=== PATIENT | female | born 1940 | race Caucasian/White ===

== ENCOUNTER 2018-11-18 12:48 | Day surgery (SDC) | payer MEDICARE, OTHER ==
[~2018-11-18 12:48] MED LIST: Buffered Lidocaine 0.9% SYRIN* 5 ML/SYR SYRINGE INTRADERM ONE; Dexamethasone IV* 4 MG/ML 1 ML (4 MG) IV SLOW PU ONE; Famotidine IV* 10 MG/ML 2 ML (20 mg) IV ONE; Lactated Ringers 1000 ML Bag* 1,000 ML IV SCH
[2018-11-18] MEDS ORDERED: Dexamethasone IV* 4 MG/ML 1 ML (4 MG) ONE (13:03)
[2018-11-18] MEDS ORDERED: Famotidine IV* 10 MG/ML 2 ML (20 mg) ONE (13:03)
[2018-11-18] MEDS ORDERED: Midazolam* 1 MG/ML 2 ML VIAL (2 MG) ONE (14:53)
[2018-11-18] MEDS ORDERED: fentaNYL* 50 MCG/ML 2 ML VIAL (100 MCG VIAL) ONE (14:53)
[2018-11-18] MEDS ORDERED: Bupivacaine 0.25% SDV PF* 10 ML VIAL INJ ONE (14:55)
[2018-11-18] MEDS ORDERED: Lidocaine 2% PF * 5 ML VIAL ONE (15:00)
[2018-11-18] MEDS ORDERED: Propofol* 10 MG/ML 20 ML BTL ONE (15:00)
[2018-11-18 16:22] VITALS: BP 115/73
--- NOTE | 2018-11-19 01:00 | OP ---
DATE OF OPERATION: 11/18/18 [facility] DATE OF : 38 SURGEON: Sin Akbar M.D. ELECTRICAL CONTINUITY INSPECTOR: None. ANESTHESIOLOGIST: Dr. Gomez. ANESTHESIA: Local MAC. PRE-OP DIAGNOSIS: Right middle trigger finger. POST-OP DIAGNOSIS: Right middle trigger finger. OPERATIVE PROCEDURE: Right middle trigger finger release with A1 aarti. INDICATIONS: Claudette has had the finger injected twice; it keeps recurring. We talked about risks and benefits. She wanted to proceed with the trigger finger release. ESTIMATED BLOOD LOSS: 2 mL. COMPLICATIONS: None. FINDINGS: See above and below. DESCRIPTION OF PROCEDURE: Claudette was seen in the preoperative holding area. The correct side, site, and procedure were identified. We came back to the operating room. The arm was prepped and draped in the usual fashion and time- out was performed. The arm was exsanguinated with the Esmarch and the tourniquet was inflated to 225 mmHg. I utilized her distal farfan crease and made an oblique incision. Dissection was carried down bluntly with tenotomy scissors and full thickness flaps were raised off of the tendon sheath. The Ragnell retractors were used to protect the digital nerves and incise the A1 aarti along the radial third in line with the tendons. The release was completed proximally and distally with the tenotomy scissors. Once the release had been fully completed, then I could flex and extend the fingers and there was no catching. We irrigated out the wound. The skin was closed with 4-0 nylon suture. The wounds were dressed. Tourniquet was deflated and she was taken to the recovery room in stable condition. [id number]/[facility] #: [id number] [facility]
== END 2018-11-18 16:06 | disposition home or self-care (01) ==
LOC: OREAST 12:48
PROVIDERS: ATTEND Orthopaedic Surgery Hand Surgery
DX: M65.331 Trigger finger, right middle finger (principal); E78.5 Hyperlipidemia, unspecified; M19.90 Unspecified osteoarthritis, unspecified site; E03.9 Hypothyroidism, unspecified; F41.8 Other specified anxiety disorders; Z85.41 Personal history of malignant neoplasm of cervix uteri
CPT/HCPCS: J1100; J2250; J2704; J3010; J3490